=== PATIENT | female | born 1960 | race Caucasian/White ===

== ENCOUNTER 2019-04-06 23:34 | Emergency (ER) | payer SELFPAY ==
[~2019-04-06] VITALS: Ht 175.3 cm; Wt 64.0 kg
[2019-04-07] MEDS ORDERED: LORAZEPAM 1MG TABLET PO ONE (00:30)
[2019-04-07 00:45] LABS: CHLORIDE 103 mEq/L (98-107)
[2019-04-07 00:46] LABS: BASOPHILS % 0.4 % (0.0-2.0); EOSINOPHILS % 0.4 % (0.0-5.0); HEMATOCRIT. 40.5 % (36.0-48.0); HEMOGLOBIN. 13.7 g/dL (12.0-16.0); LYMPHOCYTES % 19.7 % (20.0-50.0); MEAN CORPUSCULAR HEMOGLOBIN 31.1 pg (28.0-32.0); MEAN CORPUSCULAR VOLUME 92.4 fL (81.0-99.0); MEAN PLATELET VOLUME 8.1 fl (7.4-10.4); MONOCYTES % 5.3 % (2.0-8.0); NEUTROPHILS % 74.2 % (40.0-76.0); PLATELET 395 x1000/uL (130-400); RED BLOOD CELL COUNT 4.39 mill/uL (4.2-5.4); RED CELL DISTRIBUTION WIDTH 12.8 % (11.6-14.6)
[2019-04-07 00:49] LABS: ETHANOL BLOOD < 10 mg/dL
[2019-04-07 00:52] LABS: *AMPHETAMINES SCREEN URINE PRESUMTIVE POSITIVE (NEGATIVE); *BARBITURATES SCREEN URINE NEGATIVE (NEGATIVE); *BENZODIAZEPINES SCREEN URINE NEGATIVE (NEGATIVE); *COCAINE SCREEN URINE NEGATIVE (NEGATIVE); METHADONE URINE SCREEN NEGATIVE (NEGATIVE)
[2019-04-07 00:53] LABS: CANNABINOID URINE SCREEN NEGATIVE (NEGATIVE); OPIATES URINE SCREEN NEGATIVE (NEGATIVE); PHENCYCLIDINE URINE SCREEN NEGATIVE (NEGATIVE)
[2019-04-07 03:16] VITALS: BP 142/91
== END 2019-04-07 03:17 | disposition home or self-care (01) ==
LOC: ER 04-07 00:23
DX: R00.2 Palpitations (principal); I45.10 Unspecified right bundle-branch block; F17.210 Nicotine dependence, cigarettes, uncomplicated; Z71.6 Tobacco abuse counseling
CPT/HCPCS: 36415; 71045; 80053; 80305; 80320; 82962; 83880; 84484; 85025; 93005; 99284; 99406; Z7610; G0480

== ENCOUNTER 2021-10-02 23:04 | Emergency (ER) | payer SELFPAY ==
[~2021-10-02] VITALS: Ht 175.3 cm; Wt 55.2 kg
[2021-10-03] MEDS ORDERED: ACETAMINOPHEN 325MG TABLET PO ONE (00:15)
[2021-10-03] MEDS ORDERED: ACET-2708 MT (00:45)
[2021-10-03 01:00] VITALS: BP 135/72
== END 2021-10-03 02:12 | disposition home or self-care (01) ==
LOC: ER 23:47
DX: S82.092A Other fracture of left patella, initial encounter for closed fracture (principal); F10.10 Alcohol abuse, uncomplicated; Y90.9 Presence of alcohol in blood, level not specified; F15.90 Other stimulant use, unspecified, uncomplicated; F11.10 Opioid abuse, uncomplicated; R00.0 Tachycardia, unspecified; W01.0XXA Fall on same level from slipping, tripping and stumbling without subsequent striking against object, initial encounter; Y93.89 Activity, other specified; Y92.89 Other specified places as the place of occurrence of the external cause
CPT/HCPCS: 73562; 99283; L1830

== ENCOUNTER 2024-03-17 15:32 | Emergency (ER) | payer BC ==
[~2024-03-17] VITALS: Ht 175.3 cm; Wt 63.5 kg
[~2024-03-17 15:32] MED LIST: ACET-2708 MT
[2024-03-17 15:40] VITALS: TEMP 97.6; O2SAT 97
[2024-03-17] MEDS ORDERED: CIPHCO LEFT EAR (16:59)
[2024-03-17] MEDS ORDERED: TOPUD MT (17:00)
[2024-03-17 17:06] VITALS: BP 122/78; PULSE 78; RESP 14; O2SAT 99
== END 2024-03-17 17:10 | disposition home or self-care (01) ==
LOC: ER 15:32
DX: H60.91 Unspecified otitis externa, right ear (principal); F15.10 Other stimulant abuse, uncomplicated
CPT/HCPCS: 99283

== ENCOUNTER 2025-02-04 16:35 | Emergency (ER) | payer BC, MEDICAID ==
[~2025-02-04] VITALS: Ht 175.3 cm; Wt 64.0 kg
[~2025-02-04 16:35] MED LIST changes: +CIPHCO LEFT EAR; +TOPUD MT
[2025-02-04 16:42] VITALS: O2SAT 99
[2025-02-04] MEDS: LIDOCAINE 5% PATCH TOP SCH (18:15)
[2025-02-04] MEDS: ACETAMINOPHEN 500MG TABLET PO ONE (18:15)
[2025-02-04] MEDS: KETOROLAC 15MG/ML VIAL IM ONE (18:15)
[2025-02-04] MEDS ORDERED: LIDO700A30 TP (19:21)
[2025-02-04 19:26] VITALS: BP 151/93; PULSE 82; RESP 20; TEMP 36.7; O2SAT 99
== END 2025-02-04 19:31 | disposition home or self-care (01) ==
LOC: ER 16:35
DX: M54.9 Dorsalgia, unspecified (principal); R07.89 Other chest pain; F15.90 Other stimulant use, unspecified, uncomplicated
CPT/HCPCS: 99283; 71101; 96372; J1885; 99285